=== PATIENT | female | born 1970 | race Asian ===

== ENCOUNTER 2020-11-17 18:40 | Inpatient (IN) | payer MEDICAID ==
[~2020-11-17] VITALS: Ht 160 cm; Wt 63.5 kg
[2020-11-17] MEDS ORDERED: ALBUTEROL (0.5%) 2.5MG/0.5ML NEB HHN ONE (22:15)
[2020-11-17] MEDS ORDERED: LIDO700A15 TP (22:30)
[2020-11-17] MEDS ORDERED: T3 PO (22:30)
[2020-11-17 23:50] LABS: BASOPHILS % 0.6 % (0.0-2.0); EOSINOPHILS % 1.5 % (0.0-5.0); HEMATOCRIT. 33.1 % (36.0-48.0); LYMPHOCYTES % 8.9 % (20.0-50.0); MEAN CORPUSCULAR HEMOGLOBIN 30.7 pg (28.0-32.0); MEAN CORPUSCULAR VOLUME 92.7 fL (81.0-99.0); MEAN PLATELET VOLUME 8.6 fl (7.4-10.4); MONOCYTES % 3.6 % (2.0-8.0); NEUTROPHILS % 85.4 % (40.0-76.0); PLATELET 156 x1000/uL (130-400); RED BLOOD CELL COUNT 3.57 mill/uL (4.2-5.4); RED CELL DISTRIBUTION WIDTH 15.5 % (11.6-14.6)
[2020-11-17 23:51] LABS: CHLORIDE 104 mEq/L (98-107)
[2020-11-17 23:55] LABS: PROTHROMBIN TIME 11.2 sec (9.6-11.0)
[2020-11-18] MEDS ORDERED: ACETAMINOPHEN 325MG TABLET PO PRN (07:30)
[2020-11-18] MEDS ORDERED: ONDANSETRON HCL 4MG/2ML INJ IV PRN (07:30)
[2020-11-18] MEDS: ENOXAPARIN 60MG/0.6ML SYR SUBCUT SCH (09:30)
[2020-11-18 10:10] VITALS: BP 145/83
[2020-11-18 12:29] VITALS: BP 119/69
[2020-11-18] MEDS ORDERED: BISA10SU62 RC (14:00)
[2020-11-18] MEDS ORDERED: HYDR-4134 MT (14:00)
[2020-11-18] MEDS ORDERED: CALC0.5C10 PO (14:22)
[2020-11-18] MEDS ORDERED: APIX2.5T MT (14:22)
[2020-11-18] MEDS ORDERED: CALC-586 MT (14:22)
[2020-11-18] MEDS ORDERED: CHOL400D7 MT (14:22)
[2020-11-18] MEDS ORDERED: POLY15DR31 EACHEYE (15:11)
[2020-11-18] MEDS ORDERED: SEVE800T8 MT (15:11)
[2020-11-18] MEDS ORDERED: MIDO5TAB4 PO (15:11)
[2020-11-18] MEDS ORDERED: AMLO10TA4 MT (15:11)
[2020-11-18] MEDS ORDERED: MIDO5TAB4 MT (15:11)
[2020-11-18] MEDS ORDERED: ATOR-2 MT (15:11)
[2020-11-18] MEDS ORDERED: DOCU250C14 MT (15:11)
[2020-11-18 16:09] VITALS: BP 142/62
[2020-11-18 20:42] VITALS: BP 119/67
[2020-11-19 00:31] VITALS: BP 126/75
[2020-11-19 04:00] VITALS: BP 119/81
[2020-11-19 07:09] LABS: BASOPHILS % 0.6 % (0.0-2.0); EOSINOPHILS % 2.8 % (0.0-5.0); HEMATOCRIT. 32.6 % (36.0-48.0); HEMOGLOBIN. 10.4 g/dL (12.0-16.0); LYMPHOCYTES % 18.3 % (20.0-50.0); MEAN CORPUSCULAR HEMOGLOBIN 30.1 pg (28.0-32.0); MEAN CORPUSCULAR VOLUME 94.8 fL (81.0-99.0); MONOCYTES % 7.2 % (2.0-8.0); NEUTROPHILS % 71.1 % (40.0-76.0); PLATELET 177 x1000/uL (130-400); RED BLOOD CELL COUNT 3.44 mill/uL (4.2-5.4); RED CELL DISTRIBUTION WIDTH 15.7 % (11.6-14.6)
[2020-11-19 08:09] VITALS: BP 155/79
[2020-11-19] MEDS: ENOXAPARIN 60MG/0.6ML SYR SUBCUT SCH (09:00)
[2020-11-19 12:14] VITALS: BP 129/74
[2020-11-19 12:39] LABS: HEPATITIS B SURFACE ANTIGEN NEGATIVE
[2020-11-19 16:05] VITALS: BP 133/76
[2020-11-19 20:00] VITALS: BP 134/90
[2020-11-20] VITALS: BP 128/77
[2020-11-20] MEDS ORDERED: VANCOMYCIN 1 G PREMIX 200 ML IV NR (01:00)
[2020-11-20] MEDS: IPRATROPIUM/ALBUTEROL 0.5-3(2.5)MG/3ML NEB HHN PRN ×2 (01:27→13:24)
[2020-11-20 04:00] VITALS: BP 138/75
[2020-11-20] MEDS: PIPERACILLIN/TAZOBACTAM 3.375 G in DEXTROSE 5% WATER 50 ML IV SCH ×2 (05:02→20:59)
[2020-11-20 08:00] VITALS: BP 141/74
[2020-11-20] MEDS: ENOXAPARIN 60MG/0.6ML SYR SUBCUT SCH (09:00)
[2020-11-20 12:10] VITALS: BP 110/55
[2020-11-20 16:00] VITALS: BP 115/66
[2020-11-20 20:00] VITALS: BP 135/73
[2020-11-21] VITALS (46 sets, daily range): BP systolic 91–189; BP diastolic 15–152
[2020-11-21 05:03] LABS: BASOPHILS % 0.6 % (0.0-2.0); EOSINOPHILS % 4.1 % (0.0-5.0); HEMATOCRIT. 27.8 % (36.0-48.0); HEMOGLOBIN. 9.2 g/dL (12.0-16.0); LYMPHOCYTES % 17.1 % (20.0-50.0); MEAN CORPUSCULAR HEMOGLOBIN 30.5 pg (28.0-32.0); MEAN CORPUSCULAR VOLUME 92.2 fL (81.0-99.0); MEAN PLATELET VOLUME 8.7 fl (7.4-10.4); MONOCYTES % 5.9 % (2.0-8.0); NEUTROPHILS % 72.3 % (40.0-76.0); PLATELET 206 x1000/uL (130-400); RED BLOOD CELL COUNT 3.02 mill/uL (4.2-5.4); RED CELL DISTRIBUTION WIDTH 15.1 % (11.6-14.6)
[2020-11-21] MEDS ORDERED: PHENYLEPHRINE 100 MG in DEXT 5% WATER 240 ML IV PRN (09:00)
[2020-11-21] MEDS: ENOXAPARIN 60MG/0.6ML SYR SUBCUT SCH (09:00)
[2020-11-21 09:53] LABS: BG BASE EXCESS -3.6 mmol/L (-2.0-2.0); BG CARBOXYHEMOGLOBIN 0.3 % (0.5-1.5); BG DEOXYHEMOGLOBIN 0.2 % (0.0-5.0); BG FRACTION INSPIRED OXYGEN 100; BG HCO3 ACT 19.2 mmol/L (22.0-26.0); BG METHEMOGLOBIN 0.2 % (0.0-1.5); BG OXYGEN SATURATION 99.8 % (92.0-98.5); BG OXYHEMOGLOBIN 99.3 % (94.0-97.0); BG PCO2 27.2 mmHg (35.0-45.0); BG PH 7.466 (7.350-7.450); BG PO2 478.4 mmHg (75.0-100.0); BG SAMPLE SITE RIGHT RADIAL; BG TOTAL HEMOGLOBIN 10.2 g/dL (12.0-18.0); BG TOTAL RESPIRATORY RATE 16 b/min; BG VENT MODE VENT - AC
[2020-11-21] MEDS: PIPERACILLIN/TAZOBACTAM 3.375 G in DEXTROSE 5% WATER 50 ML IV SCH ×2 (09:56→20:53)
[2020-11-21] MEDS: MIDAZOLAM HCL 100 MG in SODIUM CHLORIDE 0.9% 80 ML IV PRN (11:37)
[2020-11-21] MEDS: FENTANYL CITRATE/PF 2,500 MCG in SODIUM CHLORIDE 0.9% 200 ML IV PRN (11:38)
[2020-11-21] MEDS ORDERED: LEVETIRACETAM 500 MG in SODIUM CHLORIDE 0.9% 100 ML IV SCH (12:00)
[2020-11-21] MEDS ORDERED: VANCOMYCIN 500 MG PREMIX 100 ML IV SCH (12:00)
[2020-11-21] MEDS ORDERED: LORAZEPAM 2MG/ML CPJ IV NR (12:15)
[2020-11-21] MEDS ORDERED: LORAZEPAM 2MG/ML CPJ IV PRN (12:15)
[2020-11-21] MEDS: LEVETIRACETAM 500MG PREMIX 100 ML IV SCH ×2 (13:33→20:53)
[2020-11-21] MEDS ORDERED: LORAZEPAM 2MG/ML CPJ IV SCH (14:00)
[2020-11-21] MEDS: PROPOFOL 10MG/ML 100ML 100 ML IV PRN ×2 (14:27→18:50)
[2020-11-22] VITALS (67 sets, daily range): BP systolic 47–184; BP diastolic 33–125
[2020-11-22] MEDS: MIDAZOLAM HCL 100 MG in SODIUM CHLORIDE 0.9% 80 ML IV PRN ×2 (00:27→14:14)
[2020-11-22] MEDS: CLONIDINE 0.1MG TABLET PO PRN (00:37)
[2020-11-22] MEDS: PROPOFOL 10MG/ML 100ML 100 ML IV PRN ×3 (01:32→15:05)
[2020-11-22 06:30] LABS: BASOPHILS % 0.5 % (0.0-2.0); EOSINOPHILS % 2.3 % (0.0-5.0); HEMATOCRIT. 27.7 % (36.0-48.0); HEMOGLOBIN. 9.1 g/dL (12.0-16.0); LYMPHOCYTES % 9.6 % (20.0-50.0); MEAN CORPUSCULAR HEMOGLOBIN 29.8 pg (28.0-32.0); MEAN CORPUSCULAR VOLUME 90.8 fL (81.0-99.0); MEAN PLATELET VOLUME 8.8 fl (7.4-10.4); MONOCYTES % 5.5 % (2.0-8.0); NEUTROPHILS % 82.1 % (40.0-76.0); PLATELET 183 x1000/uL (130-400); RED BLOOD CELL COUNT 3.05 mill/uL (4.2-5.4); RED CELL DISTRIBUTION WIDTH 15.3 % (11.6-14.6)
[2020-11-22] MEDS: LEVETIRACETAM 500MG PREMIX 100 ML IV SCH ×2 (08:42→21:59)
[2020-11-22] MEDS: ENOXAPARIN 60MG/0.6ML SYR SUBCUT SCH (09:00)
[2020-11-22] MEDS: PIPERACILLIN/TAZOBACTAM 3.375 G in DEXTROSE 5% WATER 50 ML IV SCH ×2 (09:40→21:59)
[2020-11-22] MEDS: DOCUSATE SODIUM SUGAR FREE 100MG/10ML UDC NG SCH (09:40)
[2020-11-22 10:25] LABS: BG CARBOXYHEMOGLOBIN 0.3 % (0.5-1.5); BG DEOXYHEMOGLOBIN 1.3 % (0.0-5.0); BG FRACTION INSPIRED OXYGEN 35; BG HCO3 ACT 20.4 mmol/L (22.0-26.0); BG METHEMOGLOBIN 0.1 % (0.0-1.5); BG OXYGEN SATURATION 98.7 % (92.0-98.5); BG OXYHEMOGLOBIN 98.3 % (94.0-97.0); BG PCO2 23.5 mmHg (35.0-45.0); BG PH 7.556 (7.350-7.450); BG PO2 144.2 mmHg (75.0-100.0); BG SAMPLE SITE RIGHT RADIAL; BG TOTAL HEMOGLOBIN 9.5 g/dL (12.0-18.0); BG VENT MODE VENT - AC
[2020-11-22] MEDS: FENTANYL CITRATE/PF 2,500 MCG in SODIUM CHLORIDE 0.9% 200 ML IV PRN (14:15)
[2020-11-22] MEDS: ACETYLCYSTEINE 100MG/ML 10% VIAL 4ML INH SCH (14:54)
[2020-11-22] MEDS: IPRATROPIUM/ALBUTEROL 0.5-3(2.5)MG/3ML NEB HHN SCH ×2 (14:54→20:03)
[2020-11-23] VITALS (91 sets, daily range): BP systolic 65–186; BP diastolic 35–99
[2020-11-23] MEDS: IPRATROPIUM/ALBUTEROL 0.5-3(2.5)MG/3ML NEB HHN SCH ×4 (00:11→20:11)
[2020-11-23] MEDS: ACETYLCYSTEINE 100MG/ML 10% VIAL 4ML INH SCH ×3 (00:11→16:58)
[2020-11-23] MEDS: PROPOFOL 10MG/ML 100ML 100 ML IV PRN ×2 (06:39→17:01)
[2020-11-23 07:31] LABS: BASOPHILS % 0.6 % (0.0-2.0); EOSINOPHILS % 4.1 % (0.0-5.0); HEMATOCRIT. 27.5 % (36.0-48.0); HEMOGLOBIN. 8.9 g/dL (12.0-16.0); LYMPHOCYTES % 8.7 % (20.0-50.0); MEAN CORPUSCULAR HEMOGLOBIN 29.9 pg (28.0-32.0); MEAN CORPUSCULAR VOLUME 92.2 fL (81.0-99.0); MEAN PLATELET VOLUME 9.3 fl (7.4-10.4); MONOCYTES % 6.8 % (2.0-8.0); NEUTROPHILS % 79.8 % (40.0-76.0); PLATELET 161 x1000/uL (130-400); RED BLOOD CELL COUNT 2.98 mill/uL (4.2-5.4); RED CELL DISTRIBUTION WIDTH 15.5 % (11.6-14.6)
[2020-11-23] MEDS: DOCUSATE SODIUM SUGAR FREE 100MG/10ML UDC NG SCH (08:41)
[2020-11-23] MEDS: LEVETIRACETAM 500MG PREMIX 100 ML IV SCH ×2 (08:41→20:04)
[2020-11-23] MEDS: PIPERACILLIN/TAZOBACTAM 3.375 G in DEXTROSE 5% WATER 50 ML IV SCH ×2 (08:42→20:04)
[2020-11-23] MEDS: ENOXAPARIN 60MG/0.6ML SYR SUBCUT SCH (08:42)
[2020-11-23] MEDS: MIDAZOLAM HCL 100 MG in SODIUM CHLORIDE 0.9% 80 ML IV PRN ×2 (09:46→11:47)
[2020-11-23 10:52] LABS: BG BASE EXCESS -3.8 mmol/L (-2.0-2.0); BG CARBOXYHEMOGLOBIN 0.3 % (0.5-1.5); BG DEOXYHEMOGLOBIN 1.6 % (0.0-5.0); BG FRACTION INSPIRED OXYGEN 35; BG HCO3 ACT 18.3 mmol/L (22.0-26.0); BG METHEMOGLOBIN 0.1 % (0.0-1.5); BG OXYGEN SATURATION 98.4 % (92.0-98.5); BG PCO2 24.4 mmHg (35.0-45.0); BG PH 7.494 (7.350-7.450); BG PO2 123.2 mmHg (75.0-100.0); BG SAMPLE SITE RIGHT RADIAL; BG TOTAL HEMOGLOBIN 9.6 g/dL (12.0-18.0); BG VENT MODE VENT - AC
[2020-11-23] MEDS ORDERED: PROPOFOL 10MG/ML 100ML 100 ML IV PRN (13:00)
[2020-11-23 14:32] LABS: HEPATITIS B SURFACE ANTIGEN NEGATIVE
[2020-11-23] MEDS: FENTANYL CITRATE/PF 2,500 MCG in SODIUM CHLORIDE 0.9% 200 ML IV PRN ×2 (14:35→19:39)
[2020-11-24] VITALS (83 sets, daily range): BP systolic 92–203; BP diastolic 59–110
[2020-11-24] MEDS: ACETYLCYSTEINE 100MG/ML 10% VIAL 4ML INH SCH ×3 (01:48→13:10)
[2020-11-24] MEDS: IPRATROPIUM/ALBUTEROL 0.5-3(2.5)MG/3ML NEB HHN SCH ×4 (01:49→21:14)
[2020-11-24] MEDS: PROPOFOL 10MG/ML 100ML 100 ML IV PRN (03:48)
[2020-11-24 06:38] LABS: HEMATOCRIT. 28.5 % (36.0-48.0); HEMOGLOBIN. 9.2 g/dL (12.0-16.0); MEAN CORPUSCULAR HEMOGLOBIN 29.5 pg (28.0-32.0); MEAN CORPUSCULAR VOLUME 91.9 fL (81.0-99.0); MEAN PLATELET VOLUME 9.5 fl (7.4-10.4); PLATELET 151 x1000/uL (130-400); RED CELL DISTRIBUTION WIDTH 15.3 % (11.6-14.6)
[2020-11-24 06:40] LABS: PHOSPHORUS 5.8 mg/dL (2.5-4.9)
[2020-11-24] MEDS: MIDAZOLAM HCL 100 MG in SODIUM CHLORIDE 0.9% 80 ML IV PRN (06:55)
[2020-11-24] MEDS: ENOXAPARIN 80MG/0.8ML SYR SUBCUT SCH (08:08)
[2020-11-24] MEDS: PIPERACILLIN/TAZOBACTAM 3.375 G in DEXTROSE 5% WATER 50 ML IV SCH ×2 (08:08→20:45)
[2020-11-24] MEDS: LEVETIRACETAM 500MG PREMIX 100 ML IV SCH ×2 (08:08→20:45)
[2020-11-24] MEDS ORDERED: NICARDIPINE 50 MG in SODIUM CHLORIDE 0.9% 230 ML IV PRN (08:45)
[2020-11-24] MEDS: AMLODIPINE 5MG TABLET PO SCH (08:55)
[2020-11-24] MEDS: DOCUSATE SODIUM SUGAR FREE 100MG/10ML UDC NG SCH (08:56)
[2020-11-24] MEDS: CALCIUM ACETATE 667MG CAPSULE PO SCH ×3 (09:26→17:46)
[2020-11-24 09:53] LABS: BG BASE EXCESS -3.8 mmol/L (-2.0-2.0); BG CARBOXYHEMOGLOBIN 0.5 % (0.5-1.5); BG DEOXYHEMOGLOBIN 1.3 % (0.0-5.0); BG FRACTION INSPIRED OXYGEN 30; BG OXYGEN SATURATION 98.7 % (92.0-98.5); BG OXYHEMOGLOBIN 98.2 % (94.0-97.0); BG PCO2 26.7 mmHg (35.0-45.0); BG PH 7.469 (7.350-7.450); BG PO2 131.1 mmHg (75.0-100.0); BG SAMPLE SITE RIGHT RADIAL; BG TOTAL HEMOGLOBIN 9.5 g/dL (12.0-18.0); BG VENT MODE VENT - AC
[2020-11-24 10:22] LABS: PLATELET ESTIMATE NORMAL
[2020-11-24] MEDS: BLOOD SUGAR DIAGNOSTIC STRIP TEST SCH ×2 (12:28→17:31)
[2020-11-24] MEDS: INSULIN LISPRO 100 UNITS/ML SUBCUT SCH ×2 (13:09→17:32)
[2020-11-24] MEDS: HYDRALAZINE HCL 25MG TABLET PO SCH ×2 (13:37→23:16)
[2020-11-24] MEDS ORDERED: HYDRALAZINE HCL 25MG TABLET PO SCH (14:00)
[2020-11-25] VITALS (82 sets, daily range): BP systolic 94–167; BP diastolic 66–123
[2020-11-25] MEDS: BLOOD SUGAR DIAGNOSTIC STRIP TEST SCH ×4 (00:15→18:39)
[2020-11-25] MEDS: IPRATROPIUM/ALBUTEROL 0.5-3(2.5)MG/3ML NEB HHN SCH ×4 (01:39→21:16)
[2020-11-25] MEDS: ACETYLCYSTEINE 100MG/ML 10% VIAL 4ML INH SCH ×3 (01:40→16:27)
[2020-11-25] MEDS: PROPOFOL 10MG/ML 100ML 100 ML IV PRN ×2 (05:11→20:25)
[2020-11-25] MEDS: INSULIN LISPRO 100 UNITS/ML SUBCUT SCH ×4 (06:00→18:00)
[2020-11-25] MEDS: HYDRALAZINE HCL 25MG TABLET PO SCH ×3 (06:08→22:31)
[2020-11-25 07:17] LABS: BASOPHILS % 0.7 % (0.0-2.0); EOSINOPHILS % 5.3 % (0.0-5.0); HEMATOCRIT. 27.2 % (36.0-48.0); HEMOGLOBIN. 8.8 g/dL (12.0-16.0); LYMPHOCYTES % 7.9 % (20.0-50.0); MEAN CORPUSCULAR HEMOGLOBIN 29.7 pg (28.0-32.0); MEAN CORPUSCULAR VOLUME 92.2 fL (81.0-99.0); MEAN PLATELET VOLUME 9.6 fl (7.4-10.4); MONOCYTES % 8.5 % (2.0-8.0); NEUTROPHILS % 77.6 % (40.0-76.0); PLATELET 142 x1000/uL (130-400); RED BLOOD CELL COUNT 2.96 mill/uL (4.2-5.4); RED CELL DISTRIBUTION WIDTH 15.2 % (11.6-14.6)
[2020-11-25] MEDS: LEVETIRACETAM 500MG PREMIX 100 ML IV SCH ×2 (09:12→20:34)
[2020-11-25] MEDS: CALCIUM ACETATE 667MG CAPSULE PO SCH ×3 (09:12→17:00)
[2020-11-25] MEDS: DOCUSATE SODIUM SUGAR FREE 100MG/10ML UDC NG SCH (09:12)
[2020-11-25] MEDS: ENOXAPARIN 80MG/0.8ML SYR SUBCUT SCH (09:12)
[2020-11-25] MEDS: AMLODIPINE 5MG TABLET PO SCH (09:12)
[2020-11-25 10:39] LABS: BG BASE EXCESS -2.7 mmol/L (-2.0-2.0); BG CARBOXYHEMOGLOBIN 0.3 % (0.5-1.5); BG DEOXYHEMOGLOBIN 1.4 % (0.0-5.0); BG FRACTION INSPIRED OXYGEN 30; BG HCO3 ACT 22.6 mmol/L (22.0-26.0); BG METHEMOGLOBIN 0.1 % (0.0-1.5); BG OXYGEN SATURATION 98.6 % (92.0-98.5); BG OXYHEMOGLOBIN 98.2 % (94.0-97.0); BG PCO2 41.4 mmHg (35.0-45.0); BG PH 7.355 (7.350-7.450); BG PO2 150.9 mmHg (75.0-100.0); BG SAMPLE SITE RIGHT RADIAL; BG TOTAL HEMOGLOBIN 10.2 g/dL (12.0-18.0); BG VENT MODE VENT - AC
[2020-11-25] MEDS ORDERED: MIDAZOLAM 100MG/100ML PMX 100 ML IV PRN (17:00)
[2020-11-25] MEDS ORDERED: FENTANYL CITRATE/PF 2,500 MCG in SODIUM CHLORIDE 0.9% 200 ML IV PRN (17:00)
[2020-11-25] MEDS ORDERED: MIDAZOLAM HCL 100 MG in SODIUM CHLORIDE 0.9% 100 ML IV PRN (17:15)
[2020-11-25] MEDS: DEXTROSE 50% WATER 50ML SYRINGE IV PRN (18:40)
[2020-11-25] MEDS: EPOETIN ALFA-EPBX 10,000 UNIT/ML VIAL SUBCUT SCH (20:41)
[2020-11-26] VITALS (86 sets, daily range): BP systolic 101–195; BP diastolic 64–141
[2020-11-26] MEDS: IPRATROPIUM/ALBUTEROL 0.5-3(2.5)MG/3ML NEB HHN SCH ×4 (01:51→22:10)
[2020-11-26] MEDS: ACETYLCYSTEINE 100MG/ML 10% VIAL 4ML INH SCH ×3 (01:51→12:53)
[2020-11-26] MEDS: INSULIN LISPRO 100 UNITS/ML SUBCUT SCH ×4 (06:00→17:26)
[2020-11-26 06:42] LABS: BASOPHILS % 0.4 % (0.0-2.0); EOSINOPHILS % 4.5 % (0.0-5.0); HEMATOCRIT. 30.3 % (36.0-48.0); HEMOGLOBIN. 10.3 g/dL (12.0-16.0); LYMPHOCYTES % 11.7 % (20.0-50.0); MEAN CORPUSCULAR VOLUME 91.5 fL (81.0-99.0); MEAN PLATELET VOLUME 9.4 fl (7.4-10.4); MONOCYTES % 8.3 % (2.0-8.0); NEUTROPHILS % 75.1 % (40.0-76.0); PLATELET 180 x1000/uL (130-400); RED BLOOD CELL COUNT 3.31 mill/uL (4.2-5.4); RED CELL DISTRIBUTION WIDTH 15.1 % (11.6-14.6)
[2020-11-26] MEDS: BLOOD SUGAR DIAGNOSTIC STRIP TEST SCH ×4 (06:55→17:26)
[2020-11-26] MEDS: HYDRALAZINE HCL 25MG TABLET PO SCH ×3 (06:56→22:41)
[2020-11-26] MEDS: LEVETIRACETAM 500MG PREMIX 100 ML IV SCH ×2 (08:46→21:17)
[2020-11-26 09:07] LABS: BG BASE EXCESS 0.5 mmol/L (-2.0-2.0); BG CARBOXYHEMOGLOBIN 0.1 % (0.5-1.5); BG DEOXYHEMOGLOBIN 2.2 % (0.0-5.0); BG FRACTION INSPIRED OXYGEN 30; BG HCO3 ACT 24.4 mmol/L (22.0-26.0); BG METHEMOGLOBIN 0.2 % (0.0-1.5); BG OXYGEN SATURATION 97.8 % (92.0-98.5); BG OXYHEMOGLOBIN 97.5 % (94.0-97.0); BG PCO2 36.1 mmHg (35.0-45.0); BG PH 7.447 (7.350-7.450); BG PO2 101.9 mmHg (75.0-100.0); BG SAMPLE SITE LEFT RADIAL; BG TOTAL HEMOGLOBIN 10.4 g/dL (12.0-18.0); BG TOTAL RESPIRATORY RATE 16 b/min; BG VENT MODE VENT - AC
[2020-11-26] MEDS: DOCUSATE SODIUM SUGAR FREE 100MG/10ML UDC NG SCH (09:36)
[2020-11-26] MEDS: CALCIUM ACETATE 667MG CAPSULE PO SCH ×2 (09:37→21:18)
[2020-11-26] MEDS: AMLODIPINE 5MG TABLET PO SCH (09:37)
[2020-11-26] MEDS: ENOXAPARIN 80MG/0.8ML SYR SUBCUT SCH (09:42)
[2020-11-26] MEDS: PROPOFOL 10MG/ML 100ML 100 ML IV PRN ×2 (11:07→19:03)
[2020-11-26] MEDS ORDERED: CEFEPIME 1,000 MG in DEXTROSE 5% WATER 50 ML IV SCH (16:00)
[2020-11-26] MEDS: MEROPENEM 1,000 MG in SODIUM CHLORIDE 0.9% 100 ML IV SCH (16:29)
[2020-11-27] VITALS (94 sets, daily range): BP systolic 78–182; BP diastolic 48–117
[2020-11-27] MEDS: BLOOD SUGAR DIAGNOSTIC STRIP TEST SCH ×4 (00:55→17:38)
[2020-11-27] MEDS: ACETYLCYSTEINE 100MG/ML 10% VIAL 4ML INH SCH ×3 (01:43→14:22)
[2020-11-27] MEDS: IPRATROPIUM/ALBUTEROL 0.5-3(2.5)MG/3ML NEB HHN SCH ×4 (01:43→20:45)
[2020-11-27] MEDS: PROPOFOL 10MG/ML 100ML 100 ML IV PRN ×4 (02:21→20:10)
[2020-11-27] MEDS: INSULIN LISPRO 100 UNITS/ML SUBCUT SCH ×4 (06:00→17:38)
[2020-11-27 06:25] LABS: BASOPHILS % 0.8 % (0.0-2.0); EOSINOPHILS % 3.4 % (0.0-5.0); HEMATOCRIT. 27.8 % (36.0-48.0); HEMOGLOBIN. 9.2 g/dL (12.0-16.0); LYMPHOCYTES % 19.7 % (20.0-50.0); MEAN CORPUSCULAR HEMOGLOBIN 30.7 pg (28.0-32.0); MEAN CORPUSCULAR VOLUME 92.7 fL (81.0-99.0); MEAN PLATELET VOLUME 9.2 fl (7.4-10.4); MONOCYTES % 11.5 % (2.0-8.0); NEUTROPHILS % 64.6 % (40.0-76.0); PLATELET 191 x1000/uL (130-400); RED CELL DISTRIBUTION WIDTH 15.2 % (11.6-14.6)
[2020-11-27 06:28] LABS: PHOSPHORUS 7.3 mg/dL (2.5-4.9)
[2020-11-27] MEDS: PHENYTOIN SODIUM 100MG/2ML VIAL IV SCH ×3 (06:49→22:02)
[2020-11-27] MEDS: HYDRALAZINE HCL 25MG TABLET PO SCH ×3 (06:50→22:03)
[2020-11-27] MEDS: ENOXAPARIN 80MG/0.8ML SYR SUBCUT SCH (08:17)
[2020-11-27] MEDS: AMLODIPINE 5MG TABLET PO SCH (08:17)
[2020-11-27] MEDS: LEVETIRACETAM 500MG PREMIX 100 ML IV SCH ×2 (08:17→22:02)
[2020-11-27] MEDS: DOCUSATE SODIUM SUGAR FREE 100MG/10ML UDC NG SCH (08:18)
[2020-11-27] MEDS: CALCIUM ACETATE 667MG CAPSULE PO SCH ×3 (08:18→17:42)
[2020-11-27 10:50] LABS: BG BASE EXCESS -1.4 mmol/L (-2.0-2.0); BG CARBOXYHEMOGLOBIN 0.3 % (0.5-1.5); BG DEOXYHEMOGLOBIN 1.3 % (0.0-5.0); BG FRACTION INSPIRED OXYGEN 35; BG HCO3 ACT 23.7 mmol/L (22.0-26.0); BG METHEMOGLOBIN 0.2 % (0.0-1.5); BG OXYGEN SATURATION 98.7 % (92.0-98.5); BG OXYHEMOGLOBIN 98.2 % (94.0-97.0); BG PCO2 41.3 mmHg (35.0-45.0); BG PH 7.376 (7.350-7.450); BG SAMPLE SITE RIGHT RADIAL; BG TOTAL HEMOGLOBIN 9.6 g/dL (12.0-18.0); BG VENT MODE VENT - AC
[2020-11-27] MEDS: MEROPENEM 1,000 MG in SODIUM CHLORIDE 0.9% 100 ML IV SCH (17:42)
[2020-11-27] MEDS: EPOETIN ALFA-EPBX 10,000 UNIT/ML VIAL SUBCUT SCH (22:02)
[2020-11-28] VITALS (73 sets, daily range): BP systolic 106–162; BP diastolic 50–119
[2020-11-28] MEDS: IPRATROPIUM/ALBUTEROL 0.5-3(2.5)MG/3ML NEB HHN SCH ×4 (00:44→20:50)
[2020-11-28] MEDS: PROPOFOL 10MG/ML 100ML 100 ML IV PRN ×2 (04:33→16:40)
[2020-11-28 05:54] LABS: BASOPHILS % 0.4 % (0.0-2.0); EOSINOPHILS % 3.7 % (0.0-5.0); HEMATOCRIT. 28.7 % (36.0-48.0); HEMOGLOBIN. 9.4 g/dL (12.0-16.0); MEAN CORPUSCULAR HEMOGLOBIN 29.6 pg (28.0-32.0); MEAN CORPUSCULAR VOLUME 90.2 fL (81.0-99.0); MEAN PLATELET VOLUME 8.8 fl (7.4-10.4); MONOCYTES % 7.3 % (2.0-8.0); NEUTROPHILS % 79.6 % (40.0-76.0); PLATELET 184 x1000/uL (130-400); RED BLOOD CELL COUNT 3.18 mill/uL (4.2-5.4); RED CELL DISTRIBUTION WIDTH 15.1 % (11.6-14.6)
[2020-11-28] MEDS: INSULIN LISPRO 100 UNITS/ML SUBCUT SCH ×4 (06:00→17:07)
[2020-11-28] MEDS: BLOOD SUGAR DIAGNOSTIC STRIP TEST SCH ×4 (06:00→17:07)
[2020-11-28] MEDS: HYDRALAZINE HCL 25MG TABLET PO SCH ×3 (07:15→22:10)
[2020-11-28] MEDS: PHENYTOIN SODIUM 100MG/2ML VIAL IV SCH ×3 (07:15→22:09)
[2020-11-28] MEDS: DOCUSATE SODIUM SUGAR FREE 100MG/10ML UDC NG SCH (08:59)
[2020-11-28] MEDS: CALCIUM ACETATE 667MG CAPSULE PO SCH ×3 (08:59→17:04)
[2020-11-28] MEDS: LEVETIRACETAM 500MG PREMIX 100 ML IV SCH ×2 (09:00→20:51)
[2020-11-28] MEDS: AMLODIPINE 5MG TABLET PO SCH (09:00)
[2020-11-28 10:23] LABS: BG BASE EXCESS 8.1 mmol/L (-2.0-2.0); BG CARBOXYHEMOGLOBIN 0.3 % (0.5-1.5); BG DEOXYHEMOGLOBIN 2.3 % (0.0-5.0); BG FRACTION INSPIRED OXYGEN 30; BG HCO3 ACT 32.6 mmol/L (22.0-26.0); BG METHEMOGLOBIN 0.3 % (0.0-1.5); BG OXYGEN SATURATION 97.7 % (92.0-98.5); BG OXYHEMOGLOBIN 97.1 % (94.0-97.0); BG PCO2 45.4 mmHg (35.0-45.0); BG PH 7.474 (7.350-7.450); BG PO2 99.2 mmHg (75.0-100.0); BG SAMPLE SITE RIGHT RADIAL; BG TOTAL HEMOGLOBIN 9.8 g/dL (12.0-18.0); BG VENT MODE VENT - AC
[2020-11-28] MEDS: MEROPENEM 1,000 MG in SODIUM CHLORIDE 0.9% 100 ML IV SCH (17:04)
[2020-11-28] MEDS ORDERED: LORAZEPAM 2MG/ML CPJ IV PRN (17:45)
[2020-11-29] VITALS (84 sets, daily range): BP systolic 108–185; BP diastolic 66–120
[2020-11-29] MEDS: IPRATROPIUM/ALBUTEROL 0.5-3(2.5)MG/3ML NEB HHN SCH ×4 (00:11→20:14)
[2020-11-29] MEDS: BLOOD SUGAR DIAGNOSTIC STRIP TEST SCH ×4 (00:14→18:10)
[2020-11-29] MEDS: PROPOFOL 10MG/ML 100ML 100 ML IV PRN ×2 (04:30→10:40)
[2020-11-29] MEDS: INSULIN LISPRO 100 UNITS/ML SUBCUT SCH ×4 (06:00→18:00)
[2020-11-29] MEDS: PHENYTOIN SODIUM 100MG/2ML VIAL IV SCH ×3 (06:48→22:02)
[2020-11-29] MEDS: HYDRALAZINE HCL 25MG TABLET PO SCH ×3 (06:49→22:02)
[2020-11-29 06:59] LABS: CHLORIDE 101 mEq/L (98-107)
[2020-11-29 07:01] LABS: INR 0.9; PROTHROMBIN TIME 9.7 sec (9.6-11.0)
[2020-11-29 07:02] LABS: BASOPHILS % 0.4 % (0.0-2.0); HEMATOCRIT. 29.9 % (36.0-48.0); HEMOGLOBIN. 9.7 g/dL (12.0-16.0); LYMPHOCYTES % 9.8 % (20.0-50.0); MEAN CORPUSCULAR HEMOGLOBIN 29.5 pg (28.0-32.0); MEAN CORPUSCULAR VOLUME 90.5 fL (81.0-99.0); MONOCYTES % 6.2 % (2.0-8.0); NEUTROPHILS % 81.6 % (40.0-76.0); PLATELET 226 x1000/uL (130-400); RED CELL DISTRIBUTION WIDTH 15.1 % (11.6-14.6)
[2020-11-29] MEDS: LEVETIRACETAM 500MG PREMIX 100 ML IV SCH ×2 (08:13→20:37)
[2020-11-29] MEDS: PANTOPRAZOLE SODIUM 40 MG/VIAL IV SCH (08:13)
[2020-11-29] MEDS: DOCUSATE SODIUM SUGAR FREE 100MG/10ML UDC NG SCH (08:14)
[2020-11-29] MEDS: AMLODIPINE 5MG TABLET PO SCH (08:14)
[2020-11-29] MEDS: CALCIUM ACETATE 667MG CAPSULE PO SCH ×3 (08:14→18:09)
[2020-11-29 09:43] LABS: BG BASE EXCESS 4.2 mmol/L (-2.0-2.0); BG CARBOXYHEMOGLOBIN 0.3 % (0.5-1.5); BG DEOXYHEMOGLOBIN 0.2 % (0.0-5.0); BG FRACTION INSPIRED OXYGEN 50; BG HCO3 ACT 26.3 mmol/L (22.0-26.0); BG METHEMOGLOBIN 0.3 % (0.0-1.5); BG OXYGEN SATURATION 99.8 % (92.0-98.5); BG OXYHEMOGLOBIN 99.2 % (94.0-97.0); BG PCO2 29.2 mmHg (35.0-45.0); BG PH 7.573 (7.350-7.450); BG SAMPLE SITE RIGHT RADIAL; BG TOTAL HEMOGLOBIN 7.2 g/dL (12.0-18.0); BG VENT MODE VENT - AC
[2020-11-29] MEDS ORDERED: PROPOFOL 10MG/ML 100ML 100 ML IV PRN (12:00)
[2020-11-29] MEDS ORDERED: FENTANYL CITRATE/PF 50MCG/ML 2ML VIAL ONE (16:11)
[2020-11-29] MEDS ORDERED: MIDAZOLAM HCL 5 MG/5 ML VIAL ONE (16:11)
[2020-11-29] MEDS ORDERED: MIDAZOLAM HCL 5 MG/5 ML VIAL IV PRN (16:28)
[2020-11-29] MEDS: MEROPENEM 1,000 MG in SODIUM CHLORIDE 0.9% 100 ML IV SCH (18:09)
[2020-11-30] VITALS (87 sets, daily range): BP systolic 97–184; BP diastolic 63–121
[2020-11-30] MEDS: DEXTROSE 50% WATER 50ML SYRINGE IV PRN (00:05)
[2020-11-30] MEDS: BLOOD SUGAR DIAGNOSTIC STRIP TEST SCH ×4 (00:07→17:31)
[2020-11-30] MEDS ORDERED: DEXTROSE 50% WATER 50ML SYRINGE IV SCH (00:15)
[2020-11-30] MEDS ORDERED: DEXTROSE 50% WATER 50ML SYRINGE IV ONE (00:15)
[2020-11-30] MEDS: IPRATROPIUM/ALBUTEROL 0.5-3(2.5)MG/3ML NEB HHN SCH ×4 (00:55→20:45)
[2020-11-30] MEDS: INSULIN LISPRO 100 UNITS/ML SUBCUT SCH ×4 (06:00→17:31)
[2020-11-30] MEDS: PHENYTOIN SODIUM 100MG/2ML VIAL IV SCH ×3 (07:07→21:06)
[2020-11-30] MEDS: HYDRALAZINE HCL 25MG TABLET PO SCH ×3 (07:08→21:06)
[2020-11-30] MEDS: METOCLOPRAMIDE HCL 10MG/2ML VIAL IV SCH ×3 (07:08→17:15)
[2020-11-30] MEDS: CALCIUM ACETATE 667MG CAPSULE PO SCH ×3 (08:09→17:12)
[2020-11-30] MEDS: PANTOPRAZOLE SODIUM 40 MG/VIAL IV SCH (08:09)
[2020-11-30] MEDS: AMLODIPINE 5MG TABLET PO SCH (08:10)
[2020-11-30] MEDS: DOCUSATE SODIUM SUGAR FREE 100MG/10ML UDC NG SCH (08:10)
[2020-11-30] MEDS: LEVETIRACETAM 500MG PREMIX 100 ML IV SCH ×2 (08:12→21:05)
[2020-11-30 09:26] LABS: BASOPHILS % 0.6 % (0.0-2.0); EOSINOPHILS % 4.3 % (0.0-5.0); HEMATOCRIT. 28.1 % (36.0-48.0); HEMOGLOBIN. 9.4 g/dL (12.0-16.0); LYMPHOCYTES % 12.8 % (20.0-50.0); MEAN CORPUSCULAR HEMOGLOBIN 30.5 pg (28.0-32.0); MEAN CORPUSCULAR VOLUME 91.2 fL (81.0-99.0); MEAN PLATELET VOLUME 8.9 fl (7.4-10.4); MONOCYTES % 6.3 % (2.0-8.0); PLATELET 221 x1000/uL (130-400); RED BLOOD CELL COUNT 3.08 mill/uL (4.2-5.4); RED CELL DISTRIBUTION WIDTH 15.3 % (11.6-14.6)
[2020-11-30] MEDS: CLONIDINE 0.1MG TABLET PO PRN (11:45)
[2020-11-30] MEDS: MEROPENEM 1,000 MG in SODIUM CHLORIDE 0.9% 100 ML IV SCH (17:12)
[2020-11-30] MEDS: EPOETIN ALFA-EPBX 10,000 UNIT/ML VIAL SUBCUT SCH (21:06)
[2020-12-01] VITALS (52 sets, daily range): BP systolic 104–147; BP diastolic 66–101
[2020-12-01] MEDS: METOCLOPRAMIDE HCL 10MG/2ML VIAL IV SCH ×4 (00:02→18:22)
[2020-12-01] MEDS: BLOOD SUGAR DIAGNOSTIC STRIP TEST SCH ×4 (00:02→18:23)
[2020-12-01] MEDS: IPRATROPIUM/ALBUTEROL 0.5-3(2.5)MG/3ML NEB HHN SCH ×4 (00:50→21:16)
[2020-12-01] MEDS: INSULIN LISPRO 100 UNITS/ML SUBCUT SCH ×4 (06:00→18:00)
[2020-12-01] MEDS: PHENYTOIN SODIUM 100MG/2ML VIAL IV SCH ×3 (06:05→21:46)
[2020-12-01] MEDS: HYDRALAZINE HCL 25MG TABLET PO SCH ×3 (06:06→21:48)
[2020-12-01 09:11] LABS: BG BASE EXCESS 0.1 mmol/L (-2.0-2.0); BG CARBOXYHEMOGLOBIN 0.4 % (0.5-1.5); BG DEOXYHEMOGLOBIN 0.6 % (0.0-5.0); BG FRACTION INSPIRED OXYGEN 30; BG HCO3 ACT 24.2 mmol/L (22.0-26.0); BG OXYGEN SATURATION 99.4 % (92.0-98.5); BG PCO2 37.3 mmHg (35.0-45.0); BG SAMPLE SITE RIGHT RADIAL; BG TOTAL HEMOGLOBIN 10.1 g/dL (12.0-18.0); BG VENT MODE VENT - AC
[2020-12-01] MEDS: PANTOPRAZOLE SODIUM 40 MG/VIAL IV SCH (10:06)
[2020-12-01] MEDS: DOCUSATE SODIUM SUGAR FREE 100MG/10ML UDC NG SCH (10:06)
[2020-12-01] MEDS: AMLODIPINE 5MG TABLET PO SCH (10:07)
[2020-12-01] MEDS: ENOXAPARIN 80MG/0.8ML SYR SUBCUT SCH (10:07)
[2020-12-01] MEDS: CALCIUM ACETATE 667MG CAPSULE PO SCH ×3 (10:07→18:23)
[2020-12-01] MEDS: LEVETIRACETAM 500MG PREMIX 100 ML IV SCH ×2 (10:09→21:46)
[2020-12-01] MEDS: MEROPENEM 1,000 MG in SODIUM CHLORIDE 0.9% 100 ML IV SCH (18:22)
[2020-12-02] VITALS (69 sets, daily range): BP systolic 112–191; BP diastolic 56–137
[2020-12-02] MEDS: METOCLOPRAMIDE HCL 10MG/2ML VIAL IV SCH (00:32)
[2020-12-02] MEDS: BLOOD SUGAR DIAGNOSTIC STRIP TEST SCH ×4 (00:57→18:00)
[2020-12-02] MEDS: IPRATROPIUM/ALBUTEROL 0.5-3(2.5)MG/3ML NEB HHN SCH ×4 (01:18→20:25)
[2020-12-02] MEDS: INSULIN LISPRO 100 UNITS/ML SUBCUT SCH ×4 (06:00→18:00)
[2020-12-02 06:01] LABS: HEMATOCRIT. 30.4 % (36.0-48.0); HEMOGLOBIN. 9.9 g/dL (12.0-16.0); MEAN CORPUSCULAR HEMOGLOBIN 29.3 pg (28.0-32.0); MEAN CORPUSCULAR VOLUME 89.7 fL (81.0-99.0); MEAN PLATELET VOLUME 9.4 fl (7.4-10.4); PLATELET 183 x1000/uL (130-400); RED BLOOD CELL COUNT 3.38 mill/uL (4.2-5.4); RED CELL DISTRIBUTION WIDTH 15.1 % (11.6-14.6)
[2020-12-02] MEDS: HYDRALAZINE HCL 25MG TABLET PO SCH ×3 (06:26→21:02)
[2020-12-02] MEDS: PHENYTOIN SODIUM 100MG/2ML VIAL IV SCH ×3 (06:26→21:02)
[2020-12-02] MEDS ORDERED: ENOXAPARIN 60MG/0.6ML SYR SUBCUT SCH (09:00)
[2020-12-02] MEDS: PANTOPRAZOLE SODIUM 40 MG/VIAL IV SCH (09:04)
[2020-12-02] MEDS: DOCUSATE SODIUM SUGAR FREE 100MG/10ML UDC NG SCH (09:04)
[2020-12-02] MEDS: CALCIUM ACETATE 667MG CAPSULE PO SCH ×3 (09:05→18:38)
[2020-12-02] MEDS: AMLODIPINE 5MG TABLET PO SCH (09:07)
[2020-12-02] MEDS: LEVETIRACETAM 500MG PREMIX 100 ML IV SCH ×2 (09:08→20:28)
[2020-12-02 10:21] LABS: PLATELET ESTIMATE NORMAL
[2020-12-02] MEDS: LORAZEPAM 2MG/ML CPJ IV PRN ×2 (12:19→23:15)
[2020-12-02] MEDS: CLONIDINE 0.1MG TABLET PO PRN (13:00)
[2020-12-02] MEDS ORDERED: HYDRALAZINE 20MG/ML VIAL IV NR (15:30)
[2020-12-02] MEDS: MEROPENEM 1,000 MG in SODIUM CHLORIDE 0.9% 100 ML IV SCH (18:38)
== END 2020-12-02 23:30 | DRG 130 ==
LOC: ER 18:40 → MICUSO 11-18 01:12 → 6WST 11-18 08:37 → CVICU 11-21 07:45
PROVIDERS: ADMIT Internal Medicine; ATTEND Internal Medicine Nephrology
PROC: 5A1D70Z Performance of Urinary Filtration, Intermittent, Less than 6 Hours Per Day (ICD-10-PCS; 2020-11-19)
PROC: 0W9B3ZZ Drainage of Left Pleural Cavity, Percutaneous Approach (ICD-10-PCS; 2020-11-20)
PROC: 5A1955Z Respiratory Ventilation, Greater than 96 Consecutive Hours (ICD-10-PCS; principal; 2020-11-21)
PROC: 02HV33Z Insertion of Infusion Device into Superior Vena Cava, Percutaneous Approach (ICD-10-PCS; 2020-11-21)
PROC: B548ZZA Ultrasonography of Superior Vena Cava, Guidance (ICD-10-PCS; 2020-11-21)
PROC: 5A12012 Performance of Cardiac Output, Single, Manual (ICD-10-PCS; 2020-11-21)
PROC: 0B21XFZ Change Tracheostomy Device in Trachea, External Approach (ICD-10-PCS; 2020-11-21)
PROC: 4A10X4Z Monitoring of Central Nervous Electrical Activity, External Approach (ICD-10-PCS; 2020-11-23)
PROC: 5A1D70Z Performance of Urinary Filtration, Intermittent, Less than 6 Hours Per Day (ICD-10-PCS; 2020-11-23)
PROC: 5A1D70Z Performance of Urinary Filtration, Intermittent, Less than 6 Hours Per Day (ICD-10-PCS; 2020-11-25)
PROC: 5A1D70Z Performance of Urinary Filtration, Intermittent, Less than 6 Hours Per Day (ICD-10-PCS; 2020-11-27)
PROC: 5A1D70Z Performance of Urinary Filtration, Intermittent, Less than 6 Hours Per Day (ICD-10-PCS; 2020-11-29)
PROC: 0DH63UZ Insertion of Feeding Device into Stomach, Percutaneous Approach (ICD-10-PCS; 2020-11-30)
PROC: 5A1D70Z Performance of Urinary Filtration, Intermittent, Less than 6 Hours Per Day (ICD-10-PCS; 2020-12-02)
DX: J90 Pleural effusion, not elsewhere classified (principal); J86.9 Pyothorax without fistula; G93.41 Metabolic encephalopathy; G93.1 Anoxic brain damage, not elsewhere classified; J96.21 Acute and chronic respiratory failure with hypoxia; I12.0 Hypertensive chronic kidney disease with stage 5 chronic kidney disease or end stage renal disease; D68.69 Other thrombophilia; N18.6 End stage renal disease; J95.03 Malfunction of tracheostomy stoma; I46.9 Cardiac arrest, cause unspecified; T82.510A Breakdown (mechanical) of surgically created arteriovenous fistula, initial encounter; E11.22 Type 2 diabetes mellitus with diabetic chronic kidney disease; D64.9 Anemia, unspecified; I48.91 Unspecified atrial fibrillation; M47.9 Spondylosis, unspecified; K21.9 Gastro-esophageal reflux disease without esophagitis; R56.9 Unspecified convulsions; R13.12 Dysphagia, oropharyngeal phase; Z20.822 Contact with and (suspected) exposure to COVID-19; Z60.2 Problems related to living alone; Y71.2 Prosthetic and other implants, materials and accessory cardiovascular devices associated with adverse incidents; Z82.49 Family history of ischemic heart disease and other diseases of the circulatory system; Z86.73 Personal history of transient ischemic attack (TIA), and cerebral infarction without residual deficits; Z87.891 Personal history of nicotine dependence; Z99.2 Dependence on renal dialysis; Z88.8 Allergy status to other drugs, medicaments and biological substances; Z79.899 Other long term (current) drug therapy
CPT/HCPCS: 32555; 36415; 36600; 71045; 71250; 76937; 80048; 80053; 80202; 82040; 82375; 82805; 82962; 83615; 83735; 83986; 84100; 84145; 84478; 85025; 86705; 86709; 86803; 87070; 87340; 87426; 88108; 88312; 93005; 94003; 94640; 95816; 99285; C1725; C9113; J0360; J0692; J0885; J1165; J1650; J1953; J2060; J2185; J2250; J2370; J2543; J2704; J2765; J3010; J3370; J7040; J7050; J7060; J7608; U0003; U0005